=== PATIENT | female | born 1950 | race Two or more races ===

== ENCOUNTER 2019-01-12 07:17 | Outpatient (CLI) | payer OTHER ==
[~2019-01-12] VITALS: Ht 152.4 cm; Wt 76.2 kg
== END 2019-01-12 12:23 | disposition home or self-care (01) ==
LOC: OFIC 805 07:17
DX: R42 Dizziness and giddiness (principal); H93.13 Tinnitus, bilateral; H92.01 Otalgia, right ear; M79.7 Fibromyalgia

== ENCOUNTER 2023-03-21 04:51 | Emergency (ER) | payer OTHER ==
[~2023-03-21] VITALS: Ht 152.4 cm; Wt 77.1 kg
[2023-03-21] MEDS ORDERED: VALSARTAN160 MG PO (06:09)
[2023-03-21] MEDS ORDERED: APRESOLINE 10MG10 MG PO (06:09)
[2023-03-21] MEDS ORDERED: METOPROLOL SUCC50 MG PO (06:09)
[2023-03-21 06:10] LABS: PH,URINE 5.5 (5.0-8.0); URINE APPEARANCE Clear; URINE BILIRRUBIN Negative (NEGATIVE); URINE BLOOD Negative; URINE COLOR Yellow; URINE GLUCOSE Negative (NEGATIVE); URINE LEUKOCYTE Negative; URINE NITRATE Negative; URINE PROTEIN Negative (NEGATIVE); URINE UROBILINOGEN 0.2 E.U./dl
[2023-03-21 06:12] LABS: URINE BACTERIA 27.6 uL (0.0-1933); URINE EPITHELIAL CELLS 50.9 uL (0.0-38.8); URINE RBC 8.6 uL (0.0-20.8); URINE WBC 3.5 uL (0.0-23.2)
[2023-03-21 06:26] LABS: HEMATOCRIT 40.1 % (36.0-45.00); HEMOGLOBIN 13.7 g/dL (12.0-15.00); MEAN CELL VOLUME 92.6 fL (80.00-100.00); MEAN CORPUSCULAR HEMOGLOBIN 31.7 pg (27.00-32.0); MEAN CORPUSCULAR HGB CONC 34.3 g/dl (32.0-36.0); PLATELET COUNT 279 K/uL (150-450); RED BLOOD COUNT 4.33 M/uL (4.00-6.00); RED CELL DISTRIBUTION WIDTH 13.9 % (11.5-14.5)
[2023-03-21] MEDS ORDERED: ZYRTEC10 MG PO (06:28)
[2023-03-21] MEDS ORDERED: XANAX XR0.5 MG PO (06:28)
[2023-03-21] MEDS ORDERED: LOPERAMIDE2 M1 (06:29)
[2023-03-21] MEDS ORDERED: PEPCID AC20 MG (06:29)
[2023-03-21] MEDS ORDERED: ATORVASTATIN CA10 MG PO (06:29)
[2023-03-21] MEDS ORDERED: DEXILANT60 MG (06:30)
[2023-03-21 07:07] LABS: ALBUMIN 3.8 gm/dL (3.4-5.0); BILIRUBIN TOTAL 0.55 mg/dL (0.3-1.2); CALCIUM 9.5 mg/dL (8.5-10.1); CREATININE SERUM 0.81 mg/dL (0.55-1.02); GFR 69.5; GLOBULINA 3.6 G/DL (2.4-3.5); POTASSIUM 3.51 mEq/L (3.5-5.1); TOTAL PROTEIN 7.4 gm/dL (6.4-8.2)
== END 2023-03-21 08:55 | disposition home or self-care (01) ==
LOC: ER
PROVIDERS: General Practice
DX: I10 Essential (primary) hypertension (principal); Z91.013 Allergy to seafood; Z88.2 Allergy status to sulfonamides; Z91.018 Allergy to other foods

== ENCOUNTER 2023-04-19 15:29 | Emergency (ER) | payer OTHER ==
[~2023-04-19] VITALS: Ht 152.4 cm; Wt 79.4 kg
[~2023-04-19 15:29] MED LIST: APRESOLINE 10MG10 MG PO; ATORVASTATIN CA10 MG PO; DEXILANT60 MG; LOPERAMIDE2 M1; METOPROLOL SUCC50 MG PO; PEPCID AC20 MG; VALSARTAN160 MG PO; XANAX XR0.5 MG PO; ZYRTEC10 MG PO
[2023-04-19 17:23] LABS: HEMATOCRIT 38.8 % (36.0-45.00); MEAN CELL VOLUME 92.4 fL (80.00-100.00); MEAN CORPUSCULAR HGB CONC 33.6 g/dl (32.0-36.0); PLATELET COUNT 279 K/uL (150-450); RED CELL DISTRIBUTION WIDTH 14.7 % (11.5-14.5)
[2023-04-19 17:38] LABS: PH,URINE 6.5 (5.0-8.0); URINE APPEARANCE Clear; URINE BILIRRUBIN Negative (NEGATIVE); URINE BLOOD Negative; URINE COLOR Yellow; URINE GLUCOSE Negative (NEGATIVE); URINE LEUKOCYTE Negative; URINE NITRATE Negative; URINE PROTEIN Negative (NEGATIVE); URINE UROBILINOGEN 0.2 E.U./dl
[2023-04-19 17:39] LABS: URINE BACTERIA 72.9 uL (0.0-1933); URINE EPITHELIAL CELLS 6.3 uL (0.0-38.8); URINE RBC 2.7 uL (0.0-20.8)
[2023-04-19 17:40] LABS: URINE WBC 1.5 uL (0.0-23.2)
[2023-04-19 17:43] LABS: CALCIUM 9.3 mg/dL (8.5-10.1); CREATININE SERUM 0.78 mg/dL (0.55-1.02); GFR 72.6; POTASSIUM 3.72 mEq/L (3.5-5.1)
== END 2023-04-19 22:20 | disposition home or self-care (01) ==
LOC: ER 15:29
PROVIDERS: Emergency Medicine
DX: K52.89 Other specified noninfective gastroenteritis and colitis (principal); R42 Dizziness and giddiness; Z88.2 Allergy status to sulfonamides; Z91.013 Allergy to seafood; Z91.018 Allergy to other foods
CPT/HCPCS: 36415; 93005; 96365; 96366; 99284; J7030

== ENCOUNTER 2023-06-14 06:29 | Emergency (ER) | payer OTHER ==
[~2023-06-14] VITALS: Ht 157.5 cm; Wt 80.7 kg
[2023-06-14] MEDS ORDERED: FAMOtidine 10 MG/ML (4ML VIAL) IV STA (08:41)
[2023-06-14 09:01] LABS: HEMATOCRIT 42.7 % (36.0-45.00); HEMOGLOBIN 14.2 g/dL (12.0-15.00); MEAN CELL VOLUME 92.8 fL (80.00-100.00); MEAN CORPUSCULAR HEMOGLOBIN 30.9 pg (27.00-32.0); MEAN CORPUSCULAR HGB CONC 33.3 g/dl (32.0-36.0); PLATELET COUNT 269 K/uL (150-450); RED CELL DISTRIBUTION WIDTH 14.3 % (11.5-14.5)
[2023-06-14 09:38] LABS: CALCIUM 9.4 mg/dL (8.5-10.1); CREATININE SERUM 0.82 mg/dL (0.55-1.02); GFR 68.33; POTASSIUM 3.55 mEq/L (3.5-5.1)
[2023-06-14 09:57] LABS: PH,URINE 6.5 (5.0-8.0); URINE APPEARANCE Clear; URINE BILIRRUBIN Negative (NEGATIVE); URINE BLOOD Negative; URINE COLOR Yellow; URINE GLUCOSE Negative (NEGATIVE); URINE LEUKOCYTE Negative; URINE NITRATE Negative; URINE PROTEIN Negative (NEGATIVE); URINE UROBILINOGEN 0.2 E.U./dl
[2023-06-14 10:01] LABS: URINE BACTERIA 270.6 uL (0.0-1933); URINE EPITHELIAL CELLS 28.2 uL (0.0-38.8); URINE RBC 3.5 uL (0.0-20.8); URINE WBC 6.1 uL (0.0-23.2)
[2023-06-14] MEDS ORDERED: MECLIZINE HCL 25 MG TABLET PO STA (11:27)
== END 2023-06-14 13:31 | disposition home or self-care (01) ==
LOC: ER 06:29
PROVIDERS: General Practice
DX: R53.1 Weakness (principal); Z20.822 Contact with and (suspected) exposure to COVID-19; I10 Essential (primary) hypertension; Z88.2 Allergy status to sulfonamides; Z88.6 Allergy status to analgesic agent; Z91.013 Allergy to seafood; Z91.018 Allergy to other foods
CPT/HCPCS: 36415; 93005; 96365; 99282; J3490

== ENCOUNTER 2023-07-03 12:02 | Emergency (ER) | payer OTHER ==
[~2023-07-03] VITALS: Ht 152.4 cm; Wt 77.1 kg
[2023-07-03] MEDS ORDERED: 0.9 % SODIUM CHLORIDE 1,000 ML IV STA (13:28)
[2023-07-03] MEDS ORDERED: FAMOtidine 10 MG/ML (4ML VIAL) IV STA (13:28)
[2023-07-03 14:07] LABS: HEMATOCRIT 38.4 % (36.0-45.00); MEAN CELL VOLUME 91.4 fL (80.00-100.00); MEAN CORPUSCULAR HEMOGLOBIN 31.1 pg (27.00-32.0); PLATELET COUNT 242 K/uL (150-450); RED CELL DISTRIBUTION WIDTH 14.3 % (11.5-14.5)
[2023-07-03 14:17] LABS: ALBUMIN 3.5 gm/dL (3.4-5.0); BILIRUBIN TOTAL 0.75 mg/dL (0.3-1.2); BILIRUBIN,CONJUGATED 0.19 mg/dL (0.0-0.2); BILIRUBIN,UNCONJUGATED 0.56 mg/dL (0.0-0.6); CREATININE SERUM 0.66 mg/dL (0.55-1.02); GFR 87.79; POTASSIUM 3.54 mEq/L (3.5-5.1); TOTAL PROTEIN 7.1 gm/dL (6.4-8.2)
[2023-07-03] MEDS ORDERED: METRONIDAZOLE/SODIUM CHLORIDE 500 MG/100 ML PIGGYBACK IV ONE (17:30)
[2023-07-03] MEDS ORDERED: CIPROFLOXACIN IN 5 % DEXTROSE 400 MG/200 ML PIGGYBAG IV ONE (17:30)
== END 2023-07-03 21:24 | disposition home or self-care (01) ==
LOC: ER 12:02
PROVIDERS: General Practice
DX: K52.9 Noninfective gastroenteritis and colitis, unspecified (principal); R10.9 Unspecified abdominal pain; R11.0 Nausea; Z20.822 Contact with and (suspected) exposure to COVID-19; I10 Essential (primary) hypertension; E11.9 Type 2 diabetes mellitus without complications; Z88.2 Allergy status to sulfonamides; Z88.6 Allergy status to analgesic agent; Z91.013 Allergy to seafood; Z91.018 Allergy to other foods
CPT/HCPCS: 36415; 74176; 96365; 96366; 99284; J0744; J3490 ×2; J7030